=== PATIENT | female | born 1985 | race Caucasian/White ===

== ENCOUNTER 2023-02-11 15:54 | Emergency (ER) | payer BC, OTHER ==
[2023-02-11 16:24] VITALS: RESP 19; TEMP 98.1
--- NOTE | 2023-02-11 16:32 | ERPHSYRPT ---
- History of Present Illness Time Seen by Provider: 02/11/23 16:12 Source: patient Exam Limitations: no limitations Patient Subjective Stated Complaint: C/O fever, body aches, chills, fatigue, headache. States symptoms started last night and she has been around her co-work er who tested positive for COVID. Triage Nursing Assessment: Patient ambulated back to ER without difficulties wearing a mask. She is alert and oriented. No SOB or cough while this nurse in the room assessing. SKin tone normal. NILESH FIGUEROA. Physician History: 38-year-old fairly healthy female presented to the ER with chief complaint of fever chills, body aches, headache and not feeling well since yesterday with progressive worsening today. She has been taking [id number] antipyretic with symptomatic relief. Denies any cough sore throat or difficulty breathing. Reports some nausea but no vomiting. Positive sick contact with another coworker with COVID-19. Patient wants to get checked for COVID-19. Timing/Duration: yesterday, gradual onset, worse Possible Cause: illness exposure Modifying Factors: Improves With: nothing Associated Symptoms: fever, chills, headache, muscle aches Allergies/Adverse Reactions: No Known Drug Allergies Allergy (Verified 02/11/23 16:12) Home Medications: No Reportable Medications [No Reported Medications] 02/11/23 [History] Hx Tetanus, Diphtheria Vaccination/Date Given: Yes Immunizations Up to Date: Yes Travel Risk - International Travel Have you traveled outside of the country in past 3 weeks: No - Coronavirus Screening Are you exhibiting any of the following symptoms?: Yes Symptoms: Loss of Taste or Smell, Headaches/Body Aches/Fatigue Close contact with a COVID-19 positive Pt in past 14-21 Days: Yes - Vaccine Status Have you recieved a Covid-19 vaccination: Yes 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: [employer] - Review of Systems Constitutional: Fever, Chills, Fatigue Eyes: No Symptoms Ears, Nose, & Throat: No Symptoms Respiratory: No Symptoms Cardiac: No Symptoms Abdominal/Gastrointestinal: Nausea Musculoskeletal: Myalgias Skin: No Symptoms Neurological: Headache Endocrine: No Symptoms Hematologic/Lymphatic: No Symptoms - Past Medical History Pertinent Past Medical History: No - Past Surgical History Past Surgical History: Yes Female Surgical History: Tubal Ligation, Other Other Surgical History: cervix cone - Social History Smoking Status: Never smoker Exposure to second hand smoke: No Drug Use: none - Female History Hx Last Menstrual Period: Just finished Hx Now: No - Nursing Vital Signs Nursing Vital Signs: Initial Vital Signs Temperature 98.1 F 02/11/23 15:55 Pulse Rate 92 H 02/11/23 15:55 Respiratory Rate 19 02/11/23 15:55 Blood Pressure 127/94 02/11/23 15:55 O2 Sat by Pulse Oximetry 99 02/11/23 15:55 Pain Scale Pain Intensity 0 - Physical Exam General Appearance: no apparent distress, alert Eye Exam: PERRL/EOMI Ears, Nose, Throat Exam: normal ENT inspection, TMs normal, pharynx normal, moist mucous membranes Neck Exam: normal inspection, non-tender, supple, full range of motion, No meningismus Respiratory Exam: normal breath sounds, lungs clear Cardiovascular Exam: regular rate/rhythm, normal heart sounds Gastrointestinal/Abdomen Exam: soft, normal bowel sounds, No tenderness Extremity Exam: normal inspection Neurologic Exam: alert, oriented x 3, cooperative, 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 She has been taking [id number]-ryv-[id number] antipyretic with symptomatic relief. Denies any cough sore throat or difficulty breathing. Reports some nausea but no vomiting. Positive sick contact with another coworker with COVID-19. Patient wants to get checked for COVID-19. 02/11/23 17:05 She has bilateral clear lungs. Not in any distress. Afebrile currently. Stable vitals. COVID-19 is positive. Not a whole lot of comorbid's. Discussed with patient about Paxlovid, went over benefits and side effects/interactions, declined. Recommended supportive care and outpatient follow-up. Discussed signs symptoms of worsening needing return to ER which she seems understanding. Blood Culture(s) Obtained: No Antibiotics given: No Counseled pt/family regarding: lab results, diagnosis, need for follow-up Medical Desision Making - Diagnostic Testing Diagnostic test were ordered, analyzed, and reviewed by me: Yes - Departure Departure Disposition: Home Clinical Impression: COVID-19 virus detected, Viral syndrome Condition: Stable Critical Care Time: No Referrals: DOCTOR,NO FAMILY [Primary Care Provider] - Follow up with PCP 2 days Instructions: COVID-19 (DC) Additional Instructions: Take Tylenol/ibuprofen as needed. Drink plenty of fluids to keep yourself well- hydrated. Follow-up with primary care for reevaluation. Return to ER for worsening of symptoms. Use contact/droplet precautions.
[2023-02-11 17:01] LABS: INFLUENZA A NEGATIVE (NEGATIVE); INFLUENZA B NEGATIVE (NEGATIVE); RESPIRATORY SYNCTIAL VIRUS NEGATIVE (NEGATIVE)
[2023-02-11 17:03] LABS: SARS-CoV-2 Xpert Express POSITIVE (NEGATIVE)
[2023-02-11 17:04] VITALS: BP 118/62; PULSE 87
[2023-02-11 17:08] VITALS: O2SAT 99
== END 2023-02-11 17:15 | disposition home or self-care (01) ==
LOC: ED 15:54
DX: U07.1 COVID-19 (principal); R50.9 Fever, unspecified; M79.10 Myalgia, unspecified site; R51.9 Headache, unspecified; Z20.822 Contact with and (suspected) exposure to COVID-19
CPT/HCPCS: 0241U; 99282

== ENCOUNTER 2023-04-27 06:20 | Day surgery (SDC) | payer BC, OTHER ==
[2023-04-27] MEDS ORDERED: Lactated Ringers 1,000 ML IV SCH (06:30)
[2023-04-27] MEDS ORDERED: CEFAZOLIN 2 GM-D5W BAG** 2 GM/50 ML ML IV SCH (06:30)
[2023-04-27] MEDS ORDERED: KEFZOL 1 GM** 3 G in Sodium Chloride 0.9% 50 ML 50 ML IV SCH (06:30)
[2023-04-27 06:34] LABS: HCG URINE TEST NEGATIVE (NEGATIVE)
[2023-04-27 06:48] VITALS: RESP 16
[2023-04-27] MEDS ORDERED: Lactated Ringers 1,000 ML IV ONE (06:55)
[2023-04-27] MEDS ORDERED: SUBLIMAZE 100 MCG/2 ML ONE (08:26)
[2023-04-27] MEDS ORDERED: DIPRIVAN 200 MG/20 ML IV ONE (08:26)
[2023-04-27] MEDS ORDERED: Decadron 4 MG INJ ONE (08:27)
[2023-04-27] MEDS ORDERED: Xylocaine-Mpf 2% 5 Ml Vial ONE (08:27)
[2023-04-27] MEDS ORDERED: Zofran 4 MG/2 ML VIAL ONE (08:27)
[2023-04-27] MEDS ORDERED: Pre-Attached Lta Kit TP ONE (08:32)
[2023-04-27] MEDS ORDERED: Quelicin Fliptop 200 MG/10 ML ONE (08:34)
[2023-04-27] MEDS ORDERED: Versed 2 MG/2 ML Injection ONE (08:35)
[2023-04-27] MEDS ORDERED: DEXMEDETOMIDINE 80 MCG/20ML-NS IV ONE (08:49)
[2023-04-27] MEDS ORDERED: ALBUTEROL/Proair Hfa MDI IH ONE (08:56)
[2023-04-27] MEDS ORDERED: TORAdol 30 mg Injection ONE (08:59)
[2023-04-27 09:52] VITALS: TEMP 97.2; O2SAT 97
[2023-04-27 10:09] VITALS: BP 106/85; PULSE 50
--- NOTE | 2023-04-28 08:38 | OP ---
SURGERY DATE/TIME: 04/27/2023 0833 PREOPERATIVE DIAGNOSIS: Menorrhagia. POSTOPERATIVE DIAGNOSIS: Menorrhagia with fibroid uterus. PROCEDURE: Hysteroscopy D&C with NovaSure ablation. SURGEON: Al Fernandez D.O. CHECK AND TRANSFER BEADER: Jayne Francis, hand frame surgical elastic knitter. ANESTHESIA: General. ESTIMATED BLOOD LOSS: Minimal. COMPLICATIONS: None. INDICATIONS: The risks, benefits, indications and alternatives of the procedure were reviewed with the patient prior to procedure. The patient understood the risk of infection, bleeding, bowel injury, bladder injury, ureteral injury, uterine perforation, pelvic infection and thromboembolic disorder associated with this surgery and desires to have this surgery as a possible means to alleviate her current medical condition. DESCRIPTION OF PROCEDURE AND FINDINGS: At this point the patient is taken to the operating room, given general sedation, placed in dorsal lithotomy position, prepped and draped in the usual sterile fashion. A weighted speculum is then placed into the patient's vagina and the anterior lip of the cervix is grasped with a single tooth tenaculum. Endocervical dilators were advanced through the endocervical canal as a means to dilate the cervix and a 5 mm hysteroscope was then placed into the fundus of the uterus where visualization revealed no gross abnormalities. At this point the hysteroscope was removed and a curette was then placed into the fundus of the uterus and curettage was performed in all quadrants of the uterus retrieving a mild to moderate amount of tissue. At this point, minimal bleeding was noted and the NovaSure was then taken to the endocervical region towards the fundal region retracted approximately 1 cm with a length of 6.5 cm and a width of 4.6 cm and the machine was engaged. Ablative time was performed at approximately 1 minute and 12 seconds of ablative time. After complete ablation the instrument was disengaged and removed from the uterine cavity without complication. From this point all instruments were then removed from the patient's vaginal region. The patient was then taken out of the dorsal lithotomy position, was taken out of anesthesia and was then taken to the recovery room in stable condition. All instruments and laps were accounted for x2.
== END 2023-04-27 10:07 | disposition home or self-care (01) ==
LOC: SDC 06:20
PROVIDERS: ATTEND Obstetrics & Gynecology
DX: N92.0 Excessive and frequent menstruation with regular cycle (principal); D25.9 Leiomyoma of uterus, unspecified
CPT/HCPCS: 81025; 93005; J0330; J0690; J1100; J1885; J2250; J2405; J2704; J3010; A9270-GY

== ENCOUNTER 2024-05-02 07:32 | Observation (INO) | payer BC ==
[~2024-05-02 07:32] MED LIST: CEFAZOLIN 2 GM/100 ML NaCl 2 GM/100 ML IVPB IV SCH
[2024-05-02 07:44] LABS: HCG URINE TEST NEGATIVE (NEGATIVE)
[2024-05-02 07:57] LABS: Hematocrit 42.4 % (34.1-44.9); Hemoglobin 14.2 g/dL (11.2-15.7); Mean Corpuscular Hemoglobin 29.5 pg (25.6-32.2); Mean Corpuscular Hgb Concent. 33.5 g/dL (32.2-35.5); Mean Platelet Volume 10.9 fL (9.4-12.3); Platelet Count 266 x10^3/uL (182-369); Red Blood Count 4.82 x10^6/uL (3.93-5.22); White Blood Count 8.2 x10^3/uL (3.98-10.04)
[2024-05-02] MEDS ORDERED: Pepcid 20 MG VIAL IV ONE (07:59)
[2024-05-02] MEDS ORDERED: celeBREX 100 MG ONE (08:00)
[2024-05-02] MEDS ORDERED: TYLENOL EXTRA STRENGTH 500 MG ONE (08:00)
[2024-05-02] MEDS ORDERED: NEURONTIN ONE (08:00)
[2024-05-02] MEDS ORDERED: Decadron 4 MG ONE ×2 (08:00→08:07)
[2024-05-02] MEDS ORDERED: Lactated Ringers 1,000 ML IV ONE ×2 (08:00→11:53)
[2024-05-02] MEDS: TYLENOL EXTRA STRENGTH 500 MG PO ONE (08:05)
[2024-05-02] MEDS: celeBREX 100 MG PO ONE (08:05)
[2024-05-02] MEDS: Decadron 4 MG PO ONE (08:05)
[2024-05-02] MEDS: NEURONTIN PO ONE (08:05)
[2024-05-02] MEDS: Lactated Ringers 1,000 ML IV SCH (08:05)
[2024-05-02] MEDS: Pepcid 20 MG VIAL IV ONE (08:06)
[2024-05-02 08:10] LABS: ALBUMIN 4.5 g/dL (3.5-5.0); ANION GAP 10.7 MEQ/L (5-15); BILIRUBIN,TOTAL 0.7 mg/dL (0.2-1.3); Calcium 9.2 mg/dL (8.4-10.2); Creatinine 1 0.65 mg/dL (0.52-1.04); EST GLOMERULAR FILTRATION RATE 115.5 ML/MIN; Total Protein 7.9 g/dL (6.3-8.2)
[2024-05-02] MEDS: FLAGYL 500 MG IVPB 500 MG/100 ML BAG IV ONE (08:26)
[2024-05-02] MEDS: KEFZOL 1 GM** 3 G in Sodium Chloride 0.9% 50 ML 50 ML IV SCH (08:27)
[2024-05-02 08:30] LABS: ABO TYPING O; Antibody Screen NEGATIVE (NEGATIVE); RH TYPING NEGATIVE
[2024-05-02] MEDS ORDERED: SUBLIMAZE 100 MCG/2 ML ONE (11:25)
[2024-05-02] MEDS ORDERED: Versed 2 MG/2 ML Injection ONE (11:25)
[2024-05-02] MEDS ORDERED: Astramorph-Pf 5 MG/10 ML ONE (11:26)
[2024-05-02] MEDS ORDERED: DIPRIVAN 200 MG/20 ML IV ONE (11:26)
[2024-05-02] MEDS ORDERED: ROCURONIUM BROMIDE IV ONE (11:27)
[2024-05-02] MEDS ORDERED: Zofran 4 MG/2 ML VIAL ONE (11:27)
[2024-05-02] MEDS ORDERED: Xylocaine-Mpf 2% 5 Ml Vial ONE (11:28)
[2024-05-02] MEDS ORDERED: Marcaine Mpf 0.5% Vial 30 Ml ONE (11:52)
[2024-05-02] MEDS ORDERED: EXPAREL 133 MG/10 ML VIAL IJ ONE (11:53)
[2024-05-02] MEDS ORDERED: Pre-Attached Lta Kit TP ONE (12:06)
[2024-05-02] MEDS ORDERED: PHENYLEPHRINE HCL ONE (14:10)
[2024-05-02] MEDS ORDERED: Ephedrine Sulfate 50 MG/ML ONE (14:10)
[2024-05-02] MEDS ORDERED: DEXMEDETOMIDINE 80 MCG/20ML-NS IV ONE (14:11)
[2024-05-02] MEDS ORDERED: BRIDION 200MG/2ML IV ONE (14:15)
[2024-05-02 14:18] LABS: Appearance Clear (Clear); Bacteria None Seen /HPF (None Seen); Bilirubin Negative (Negative); Blood Negative (Negative); Epithelial Cells None Seen /HPF (None Seen); Glucose, Urine Negative (Negative); Hyaline Casts NONE SEEN /LPF (0-2); Ketones Negative (Negative); Leukocyte Esterase Negative (Negative); Nitrite Negative (Negative); Ph 7.5 (4.6-8.0); Protein,Urine Dip Negative (Negative); RBC 0-2 /HPF (0-5); WBC 0-2 /HPF (0-5)
[2024-05-02] MEDS ORDERED: MORPHINE SULFATE 2 MG INJ IV PRN (17:08)
[2024-05-02] MEDS ORDERED: Zofran 4 MG/2 ML VIAL IV PRN (17:08)
[2024-05-02] MEDS ORDERED: CLARITIN 10 MG PO PRN (17:08)
[2024-05-02] MEDS ORDERED: PERCOCET TABLET 5/325MG PO PRN (17:08)
[2024-05-02] MEDS ORDERED: DEMEROL 50 MG IV PRN (17:08)
[2024-05-02] MEDS ORDERED: BENADRYL 50 MG/ML IV PRN (17:08)
[2024-05-02] MEDS ORDERED: Narcan 0.4 MG/ML IV PRN (17:08)
[2024-05-02] MEDS ORDERED: Nubain 10 MG/ML IV PRN (17:08)
[2024-05-02] MEDS ORDERED: TORAdol 30 mg Injection IV PRN (17:17)
[2024-05-02] MEDS ORDERED: Lactated Ringers 1,000 ML IV SCH (17:30)
[2024-05-02 18:06] LABS: Hematocrit 40.5 % (34.1-44.9); Hemoglobin 13.4 g/dL (11.2-15.7); Mean Cell Volume 89.8 fL (79.4-94.8); Mean Corpuscular Hemoglobin 29.7 pg (25.6-32.2); Mean Corpuscular Hgb Concent. 33.1 g/dL (32.2-35.5); Platelet Count 246 x10^3/uL (182-369); Red Blood Count 4.51 x10^6/uL (3.93-5.22); Red Cell Distribution Width 11.9 % (11.7-14.4); White Blood Count 18.3 x10^3/uL (3.98-10.04)
[2024-05-02] MEDS ORDERED: MEDICATION INTERVENTION MC SCH ×2 (18:15)
[2024-05-02] MEDS: THERAGRAN MULTIVITAMIN PO SCH (18:51)
[2024-05-02] MEDS: Acidophilus TABLET PO SCH (18:51)
[2024-05-02] MEDS: CEFAZOLIN 2 GM/100 ML NaCl 2 GM/100 ML IVPB IV SCH (18:51)
[2024-05-02] MEDS: HOLD NARCOTIC ANALGESICS AND SEDATIVES X24 HR MC SCH (18:52)
[2024-05-02] MEDS: Reglan 10 MG/2 ML IV SCH (22:01)
[2024-05-02] MEDS: Docusate Sodium 100 MG PO SCH (22:01)
[2024-05-02] MEDS: Mylicon 80MG PO SCH (22:01)
[2024-05-03 04:50] VITALS: RESP 16; TEMP 97.1
[2024-05-03 05:00] LABS: Hematocrit 36.4 % (34.1-44.9); Hemoglobin 12.1 g/dL (11.2-15.7); Mean Cell Volume 88.3 fL (79.4-94.8); Mean Corpuscular Hemoglobin 29.4 pg (25.6-32.2); Mean Corpuscular Hgb Concent. 33.2 g/dL (32.2-35.5); Mean Platelet Volume 11.1 fL (9.4-12.3); Platelet Count 241 x10^3/uL (182-369); Red Blood Count 4.12 x10^6/uL (3.93-5.22); Red Cell Distribution Width 12.2 % (11.7-14.4); White Blood Count 13.6 x10^3/uL (3.98-10.04)
[2024-05-03 05:18] LABS: ALBUMIN 3.4 g/dL (3.5-5.0); ANION GAP 8.3 MEQ/L (5-15); BILIRUBIN,TOTAL 0.4 mg/dL (0.2-1.3); Calcium 8.6 mg/dL (8.4-10.2); Creatinine 1 0.61 mg/dL (0.52-1.04); EST GLOMERULAR FILTRATION RATE 117.3 ML/MIN; Potassium 3.8 mmol/L (3.5-5.1); Total Protein 6.2 g/dL (6.3-8.2)
[2024-05-03 07:41] VITALS: BP 122/55; PULSE 58; O2SAT 95
--- NOTE | 2024-05-03 07:50 | PCM.NOTE ---
Date and Time: 05/03/24 0747 Subjective Assessment: pod 1 sp rubén pt resting in bed and doing well able to ambulate and tolerate diet. vss afebrile abd; soft incision intact with dressing intact with no soilage. ext; no clubbing cyanosis or edema a/p sp rubén labs stable dc home today should fu in office next wednesday Objective Exam Wound Assessment: Skin/Wound Assessment Wound/Incision Assessment Start: 05/02/24 21:09 Text: Status: Active Freq: Q6H Protocol: Document 05/03/24 02:00 KD (Rec: 05/03/24 02:07 KD [id number]) Wound/Incision Assessment Lower Anterior Abdomen Wound Assessment Shift Assessment Wound Type Incision Wound Stage Non Pressure Wound Dressing Status Dry & Intact Drainage Amount None General Appearance Clean/Dry Surrounding Tissue [place] Primary Dressing aquacell dressing Comment 1 incision covered with aquacell dressing, CDI, post- op open total hysterectomy - remains true Wound Photo Photo Taken No Objective Data Vital Signs: Vital Signs - 24 hr Temp Pulse Resp BP Pulse Ox 05/03/24 07:40 97.1 F 58 L 16 122/55 95 05/03/24 06:11 96 05/03/24 04:00 97.1 F 57 L 16 100/58 97 05/02/24 23:25 98.5 F 86 19 103/57 97 05/02/24 20:00 97.0 F 76 17 119/60 96 05/02/24 19:38 98 05/02/24 17:15 81 17 115/61 94 L 05/02/24 16:15 76 16 123/82 93 L 05/02/24 15:45 69 16 125/77 96 05/02/24 15:15 97.7 F 74 16 128/74 96 05/02/24 15:00 70 16 120/77 95 05/02/24 08:13 97.9 F 88 16 122/85 96 05/02/24 08:07 97.9 F 88 16 122/85 96 05/02/24 07:53 97.9 F 88 16 122/85 96 Intake and Output: Intake & Output 04/30/24 05/01/24 05/02/24 05/03/24 11:59 11:59 11:59 11:59 Intake Total 1229 Output Total 825 Balance 404 Weight 111.9 kg 111 kg Lab Results: Lab Results-Last 24 Hours 05/02/24 05/02/24 05/02/24 Range/Units 07:51 07:51 07:51 WBC 8.2 (3.98-10.04) x10^3/uL RBC 4.82 (3.93-5.22) x10^6/uL Hgb 14.2 (11.2-15.7) g/dL Hct 42.4 (34.1-44.9) % MCV 88.0 (79.4-94.8) fL MCH 29.5 (25.6-32.2) pg MCHC 33.5 (32.2-35.5) g/dL RDW 12.0 (11.7-14.4) % Plt Count 266 (182-369) x10^3/uL MPV 10.9 (9.4-12.3) fL Sodium 136 (135-145) mmol/L Potassium 4.0 (3.5-5.1) mmol/L Chloride 104 (98-107) mmol/L Carbon Dioxide 25 (22-30) mmol/L Anion Gap 10.7 (5-15) MEQ/L BUN 11 (7-17) mg/dL Creatinine 0.65 (0.52-1.04) mg/dL Estimated GFR 115.5 ML/MIN Glucose 114 H (74-106) mg/dL Calcium 9.2 (8.4-10.2) mg/dL Total Bilirubin 0.70 (0.2-1.3) mg/dL AST 24 (14-36) U/L ALT 20 (0-35) U/L Alkaline Phosphatase 55 (38-126) U/L Serum Total Protein 7.9 (6.3-8.2) g/dL Albumin 4.5 (3.5-5.0) g/dL Urine Color (Yellow) Urine Appearance (Clear) Urine pH (4.6-8.0) Ur Specific [place] (1.005-1.030) Urine Protein (Negative) Urine Glucose (UA) (Negative) mg/dL Urine Ketones (Negative) Urine Blood (Negative) Urine Nitrite (Negative) Urine Bilirubin (Negative) Urine Urobilinogen (0.2) mg/dL Ur Leukocyte Esterase (Negative) U Hyaline Cast (Auto) (0-2) /LPF Urine Microscopic RBC (0-5) /HPF Urine Microscopic WBC (0-5) /HPF Ur Epithelial Cells (None Seen) /HPF Urine Bacteria (None Seen) /HPF ABO Group O Rh Factor NEGATIVE Antibody Screen NEGATIVE (NEGATIVE) 05/02/24 05/02/24 05/03/24 Range/Units 13:10 18:00 04:45 WBC 18.3 H 13.6 H (3.98-10.04) x10^3/uL RBC 4.51 4.12 (3.93-5.22) x10^6/uL Hgb 13.4 12.1 (11.2-15.7) g/dL Hct 40.5 36.4 (34.1-44.9) % MCV 89.8 88.3 (79.4-94.8) fL MCH 29.7 29.4 (25.6-32.2) pg MCHC 33.1 33.2 (32.2-35.5) g/dL RDW 11.9 12.2 (11.7-14.4) % Plt Count 246 241 (182-369) x10^3/uL MPV 11.0 11.1 (9.4-12.3) fL Sodium (135-145) mmol/L Potassium (3.5-5.1) mmol/L Chloride (98-107) mmol/L Carbon Dioxide (22-30) mmol/L Anion Gap (5-15) MEQ/L BUN (7-17) mg/dL Creatinine (0.52-1.04) mg/dL Estimated GFR ML/MIN Glucose (74-106) mg/dL Calcium (8.4-10.2) mg/dL Total Bilirubin (0.2-1.3) mg/dL AST (14-36) U/L ALT (0-35) U/L Alkaline Phosphatase (38-126) U/L Serum Total Protein (6.3-8.2) g/dL Albumin (3.5-5.0) g/dL Urine Color Yellow (Yellow) Urine Appearance Clear (Clear) Urine pH 7.5 (4.6-8.0) Ur Specific [place] 1.010 (1.005-1.030) Urine Protein Negative (Negative) Urine Glucose (UA) Negative (Negative) mg/dL Urine Ketones Negative (Negative) Urine Blood Negative (Negative) Urine Nitrite Negative (Negative) Urine Bilirubin Negative (Negative) Urine Urobilinogen 1.0 A (0.2) mg/dL Ur Leukocyte Esterase Negative (Negative) U Hyaline Cast (Auto) NONE SEEN (0-2) /LPF Urine Microscopic RBC 0-2 (0-5) /HPF Urine Microscopic WBC 0-2 (0-5) /HPF Ur Epithelial Cells None Seen (None Seen) /HPF Urine Bacteria None Seen (None Seen) /HPF ABO Group Rh Factor Antibody Screen (NEGATIVE) 05/03/24 Range/Units 04:45 WBC (3.98-10.04) x10^3/uL RBC (3.93-5.22) x10^6/uL Hgb (11.2-15.7) g/dL Hct (34.1-44.9) % MCV (79.4-94.8) fL MCH (25.6-32.2) pg MCHC (32.2-35.5) g/dL RDW (11.7-14.4) % Plt Count (182-369) x10^3/uL MPV (9.4-12.3) fL Sodium 134 L (135-145) mmol/L Potassium 3.8 (3.5-5.1) mmol/L Chloride 103 (98-107) mmol/L Carbon Dioxide 27 (22-30) mmol/L Anion Gap 8.3 (5-15) MEQ/L BUN 12 (7-17) mg/dL Creatinine 0.61 (0.52-1.04) mg/dL Estimated GFR 117.3 ML/MIN Glucose 122 H (74-106) mg/dL Calcium 8.6 (8.4-10.2) mg/dL Total Bilirubin 0.40 (0.2-1.3) mg/dL AST 19 (14-36) U/L ALT 17 (0-35) U/L Alkaline Phosphatase 49 (38-126) U/L Serum Total Protein 6.2 L (6.3-8.2) g/dL Albumin 3.4 L (3.5-5.0) g/dL Urine Color (Yellow) Urine Appearance (Clear) Urine pH (4.6-8.0) Ur Specific [place] (1.005-1.030) Urine Protein (Negative) Urine Glucose (UA) (Negative) mg/dL Urine Ketones (Negative) Urine Blood (Negative) Urine Nitrite (Negative) Urine Bilirubin (Negative) Urine Urobilinogen (0.2) mg/dL Ur Leukocyte Esterase (Negative) U Hyaline Cast (Auto) (0-2) /LPF Urine Microscopic RBC (0-5) /HPF Urine Microscopic WBC (0-5) /HPF Ur Epithelial Cells (None Seen) /HPF Urine Bacteria (None Seen) /HPF ABO Group Rh Factor Antibody Screen (NEGATIVE) Assessment/Plan (1) Fibroid uterus Current Visit: Yes Status: Acute Code(s): D25.9 - LEIOMYOMA OF UTERUS, UNSPECIFIED (2) Status post abdominal hysterectomy Current Visit: Yes Status: Acute Code(s): Z90.710 - ACQUIRED ABSENCE OF BOTH CERVIX AND UTERUS
--- NOTE | 2024-05-03 07:52 | PCM.DS ---
Discharge Summary Date of Admission: 05/02/24 07:32 Admitting Physician: EL FLANAGAN DO Primary Care Provider: MAULIK YEN DO Allergies Allergies No Known Drug Allergies Allergy (Verified 05/02/24 07:43) Hospital Summary - Hospital Course Hospital Course: pt admitted yesterday for undergoing total abdominal hysterectomy secondary to symptomatic fibroid uterus and underwent procedure without complication. during postop day 1 did very well able to ambulate and tolerate diet where labs reviewed and all relevant values normal. denies complaints. will send rx for percocet to [facility]. pt instructed to keep dressing intact till seen in office next wednesday. all questions answered to her satisfaction and at this time stable for discharge with fu in 1 wk. - Vitals & Intake/Output Vital Signs: Vital Signs Temperature 97.1 F 05/03/24 07:40 Pulse Rate 58 L 05/03/24 07:40 Respiratory Rate 16 05/03/24 07:40 Blood Pressure 122/55 05/03/24 07:40 O2 Sat by Pulse Oximetry 95 05/03/24 07:40 Intake & Output: Intake & Output 04/30/24 05/01/24 05/02/24 05/03/24 11:59 11:59 11:59 11:59 Intake Total 1229 Output Total 825 Balance 404 Weight 111.9 kg 111 kg - Lab Result Diagrams: 05/03/24 04:45 05/03/24 04:45 Lab Results-Last 24 Hrs: Lab Results-Last 24 Hours 05/02/24 05/02/24 05/02/24 Range/Units 07:51 07:51 07:51 WBC 8.2 (3.98-10.04) x10^3/uL RBC 4.82 (3.93-5.22) x10^6/uL Hgb 14.2 (11.2-15.7) g/dL Hct 42.4 (34.1-44.9) % MCV 88.0 (79.4-94.8) fL MCH 29.5 (25.6-32.2) pg MCHC 33.5 (32.2-35.5) g/dL RDW 12.0 (11.7-14.4) % Plt Count 266 (182-369) x10^3/uL MPV 10.9 (9.4-12.3) fL Sodium 136 (135-145) mmol/L Potassium 4.0 (3.5-5.1) mmol/L Chloride 104 (98-107) mmol/L Carbon Dioxide 25 (22-30) mmol/L Anion Gap 10.7 (5-15) MEQ/L BUN 11 (7-17) mg/dL Creatinine 0.65 (0.52-1.04) mg/dL Estimated GFR 115.5 ML/MIN Glucose 114 H (74-106) mg/dL Calcium 9.2 (8.4-10.2) mg/dL Total Bilirubin 0.70 (0.2-1.3) mg/dL AST 24 (14-36) U/L ALT 20 (0-35) U/L Alkaline Phosphatase 55 (38-126) U/L Serum Total Protein 7.9 (6.3-8.2) g/dL Albumin 4.5 (3.5-5.0) g/dL Urine Color (Yellow) Urine Appearance (Clear) Urine pH (4.6-8.0) Ur Specific [place] (1.005-1.030) Urine Protein (Negative) Urine Glucose (UA) (Negative) mg/dL Urine Ketones (Negative) Urine Blood (Negative) Urine Nitrite (Negative) Urine Bilirubin (Negative) Urine Urobilinogen (0.2) mg/dL Ur Leukocyte Esterase (Negative) U Hyaline Cast (Auto) (0-2) /LPF Urine Microscopic RBC (0-5) /HPF Urine Microscopic WBC (0-5) /HPF Ur Epithelial Cells (None Seen) /HPF Urine Bacteria (None Seen) /HPF ABO Group O Rh Factor NEGATIVE Antibody Screen NEGATIVE (NEGATIVE) 05/02/24 05/02/24 05/03/24 Range/Units 13:10 18:00 04:45 WBC 18.3 H 13.6 H (3.98-10.04) x10^3/uL RBC 4.51 4.12 (3.93-5.22) x10^6/uL Hgb 13.4 12.1 (11.2-15.7) g/dL Hct 40.5 36.4 (34.1-44.9) % MCV 89.8 88.3 (79.4-94.8) fL MCH 29.7 29.4 (25.6-32.2) pg MCHC 33.1 33.2 (32.2-35.5) g/dL RDW 11.9 12.2 (11.7-14.4) % Plt Count 246 241 (182-369) x10^3/uL MPV 11.0 11.1 (9.4-12.3) fL Sodium (135-145) mmol/L Potassium (3.5-5.1) mmol/L Chloride (98-107) mmol/L Carbon Dioxide (22-30) mmol/L Anion Gap (5-15) MEQ/L BUN (7-17) mg/dL Creatinine (0.52-1.04) mg/dL Estimated GFR ML/MIN Glucose (74-106) mg/dL Calcium (8.4-10.2) mg/dL Total Bilirubin (0.2-1.3) mg/dL AST (14-36) U/L ALT (0-35) U/L Alkaline Phosphatase (38-126) U/L Serum Total Protein (6.3-8.2) g/dL Albumin (3.5-5.0) g/dL Urine Color Yellow (Yellow) Urine Appearance Clear (Clear) Urine pH 7.5 (4.6-8.0) Ur Specific [place] 1.010 (1.005-1.030) Urine Protein Negative (Negative) Urine Glucose (UA) Negative (Negative) mg/dL Urine Ketones Negative (Negative) Urine Blood Negative (Negative) Urine Nitrite Negative (Negative) Urine Bilirubin Negative (Negative) Urine Urobilinogen 1.0 A (0.2) mg/dL Ur Leukocyte Esterase Negative (Negative) U Hyaline Cast (Auto) NONE SEEN (0-2) /LPF Urine Microscopic RBC 0-2 (0-5) /HPF Urine Microscopic WBC 0-2 (0-5) /HPF Ur Epithelial Cells None Seen (None Seen) /HPF Urine Bacteria None Seen (None Seen) /HPF ABO Group Rh Factor Antibody Screen (NEGATIVE) 05/03/24 Range/Units 04:45 WBC (3.98-10.04) x10^3/uL RBC (3.93-5.22) x10^6/uL Hgb (11.2-15.7) g/dL Hct (34.1-44.9) % MCV (79.4-94.8) fL MCH (25.6-32.2) pg MCHC (32.2-35.5) g/dL RDW (11.7-14.4) % Plt Count (182-369) x10^3/uL MPV (9.4-12.3) fL Sodium 134 L (135-145) mmol/L Potassium 3.8 (3.5-5.1) mmol/L Chloride 103 (98-107) mmol/L Carbon Dioxide 27 (22-30) mmol/L Anion Gap 8.3 (5-15) MEQ/L BUN 12 (7-17) mg/dL Creatinine 0.61 (0.52-1.04) mg/dL Estimated GFR 117.3 ML/MIN Glucose 122 H (74-106) mg/dL Calcium 8.6 (8.4-10.2) mg/dL Total Bilirubin 0.40 (0.2-1.3) mg/dL AST 19 (14-36) U/L ALT 17 (0-35) U/L Alkaline Phosphatase 49 (38-126) U/L Serum Total Protein 6.2 L (6.3-8.2) g/dL Albumin 3.4 L (3.5-5.0) g/dL Urine Color (Yellow) Urine Appearance (Clear) Urine pH (4.6-8.0) Ur Specific [place] (1.005-1.030) Urine Protein (Negative) Urine Glucose (UA) (Negative) mg/dL Urine Ketones (Negative) Urine Blood (Negative) Urine Nitrite (Negative) Urine Bilirubin (Negative) Urine Urobilinogen (0.2) mg/dL Ur Leukocyte Esterase (Negative) U Hyaline Cast (Auto) (0-2) /LPF Urine Microscopic RBC (0-5) /HPF Urine Microscopic WBC (0-5) /HPF Ur Epithelial Cells (None Seen) /HPF Urine Bacteria (None Seen) /HPF ABO Group Rh Factor Antibody Screen (NEGATIVE) Micro Results-Entire Visit: Microbiology 05/02/24 13:10 Urine Culture - Preliminary Urine, Catheterized NO GROWTH TO DATE - Procedures and Test Procedures and Tests throughout Hospitalization: Therapy Orders & Screens 05/02/24 15:15 Incentive Spirometry UD Comment: every 2 hours wa Diagnosis: S/P HYSTERECTOMY Oxygen Oxymask LPM 3 lpm Comment: 3L nc to keep sats above 93% Diagnosis: S/P HYSTERECTOMY 05/02/24 16:15 Smoking Cessation Education ONCE Comment: Diagnosis: S/P HYSTERECTOMY Smoking Status: Current every day smoker How long have you smoked: 15 yers Approximately how many cigarettes per day: 1-2 CIGS, USES VAPE Do you dip or chew tobacco: No Discharge Exam Wound Assessment: Skin/Wound Assessment Wound/Incision Assessment Start: 05/02/24 21:09 Text: Status: Active Freq: Q6H Protocol: Document 05/03/24 02:00 KD (Rec: 05/03/24 02:07 KD [id number]) Wound/Incision Assessment Lower Anterior Abdomen Wound Assessment Shift Assessment Wound Type Incision Wound Stage Non Pressure Wound Dressing Status Dry & Intact Drainage Amount None General Appearance Clean/Dry Surrounding Tissue [place] Primary Dressing aquacell dressing Comment 1 incision covered with aquacell dressing, CDI, post- op open total hysterectomy - remains true Wound Photo Photo Taken No Final Diagnosis/Problem List - Final Discharge Diagnosis/Problem (1) Fibroid uterus Current Visit: Yes Status: Acute Code(s): D25.9 - LEIOMYOMA OF UTERUS, UNSPECIFIED (2) Status post abdominal hysterectomy Current Visit: Yes Status: Acute Code(s): Z90.710 - ACQUIRED ABSENCE OF BOTH CERVIX AND UTERUS - Discharge Disposition: Home, Self-Care Condition: Stable Prescriptions: No Action Mv-Min/Iron/Folic/Calcium/Vitk [Women's Multivitamin Tablet] 1 each PO DAILY L.acidoph,Paracasei, B.lactis [Probiotic] 1 each PO DAILY Turmeric 1,000 mg PO DAILY Sour Sosa Extract [Tart Sosa Extract] 1,000 mg PO DAILY Follow up with: MAULIK YEN DO [Primary Care Provider] - EL FLANAGAN DO [ACTIVE STAFF] - 05/09/24 (should fu next wednesday for postop check may not drive for at least 1 wk should not lift heavy objects no intercourse for 6 wks should call me anytime for any issues she may have)
[2024-05-03] MEDS: ENOXAPARIN SODIUM SQ SCH (09:34)
[2024-05-03] MEDS ORDERED: TURMERIC 400 MG PO SCH (10:00)
[2024-05-03] MEDS ORDERED: NON-FORMULARY ITEM (L.Acidoph,Paracasei, B.Lactis [Probiotic] 1 EACH Capsule) PO SCH (10:00)
[2024-05-03] MEDS ORDERED: SOUR CHERRY EXTRACT 1000 MG PO SCH (10:00)
[2024-05-03] MEDS ORDERED: [UNRECOGNIZED DRUG - OTHER] PO SCH (10:00)
[2024-05-03] MEDS ORDERED: FOLIC PO SCH (10:00)
[2024-05-03] MEDS ORDERED: IRON PO SCH (10:00)
[2024-05-03] MEDS ORDERED: MV MIN PO SCH (10:00)
[2024-05-03] MEDS ORDERED: CALCIUM PO SCH (10:00)
[2024-05-03] MEDS ORDERED: VITK PO SCH (10:00)
--- NOTE | 2024-05-05 01:37 | OP ---
SURGERY DATE/TIME: 05/02/2024 [id number] PREOPERATIVE DIAGNOSIS: Symptomatic fibroid uterus with morbid obesity. POSTOPERATIVE DIAGNOSIS: Symptomatic fibroid uterus with morbid obesity. PROCEDURE: Total abdominal hysterectomy. SURGEON: Edmond Fernandez DO HANDKERCHIEF FOLDER: Shavonne Masters. ANESTHESIA: General. ESTIMATED BLOOD LOSS: 100 mL. COMPLICATIONS: None. FINDINGS: The risks, benefits, indications, and alternatives of the procedure were reviewed with the patient prior to the procedure. Patient understood the risks of infection, bleeding, bowel injury, bladder injury, ureteral injury, pelvic infection, thromboembolic disorder, wound infection associated with the surgery, and desires to have the surgery as a possible means to alleviate her current medical condition. DESCRIPTION OF PROCEDURE AND FINDINGS: At this point, the patient was taken to the operating room, placed in a supine position and given general anesthesia, prepped and draped in the usual sterile fashion. A Pfannenstiel incision was made approximately 2 cm above the symphysis pubis and extended sharply through the rectus fascia. The fascia was then incised bilaterally with the curved Gonsales scissors and the muscles of the anterior abdominal wall were in the midline by sharp and blunt dissection. The peritoneum was then grasped between 2 pickups, elevated, and entered sharply with the Metzenbaum scissors. The pelvis was then examined and was noted to have an approximately 10-week size uterus with a large 6 x 6 cm what appears anterior fibroid. An O'William-O'Rush retractor was placed into the incision. The bowel packed away with moist lap operative sponges. A tenaculum was then used to elevate the uterus. At this point, the LigaSure was used to clamp, coagulate, and cut the left uteroovarian ligament which was taken down to the round ligament towards the uterine vasculature on the left side where it too was skeletonized and it too was clamped, coagulated, and cut. The same procedure was performed on the right side where the right uteroovarian ligament was clamped, coagulated, and cut, taken down through the round ligament towards the uterine vasculature where it too was skeletonized and clamped, coagulated, and cut and a bladder flap developed. Again, the anterior lip of the broad ligament was incised on the bladder reflections to the midline from both sides. The bladder was gently dissected off the lower uterine segment and the cervix with a sponge stick. The infundibulopelvic ligaments on both sides were then doubly clamped, transected, and suture ligated with 0 Vicryl suture. The uterine arteries, as mentioned, were skeletonized, transected, and cut with a LigaSure. Again, hemostasis was assured. The uterosacral ligaments were clamped on both sides, transected, and suture ligated in a similar fashion. The cervix and the uterus were then amputated with the cautery. The vaginal cuff angles were closed with [id number] stitches as well as Vicryl and were transfixed to the ipsilateral, cardinal, and uterosacral ligaments. The remainder of the vaginal cuff was closed with a series of interrupted 0 Vicryl [id number] sutures. Hemostasis was assured. From this point, the pelvis was then irrigated copiously with warm normal saline. All operative sponges and instruments were removed from the patient's abdomen. The ovaries appeared to be within normal limits. There were no fallopian tubes that were noted within the pelvic region. The fascia was closed with running 0-Vicryl and hemostasis was assured. The subcutaneous layer was closed with 3-0 Vicryl suture. The skin was closed with absorbable [place] called Insorb. Sponge, lap, needle, and instrument counts were correct x2. The patient was then taken to the recovery room in stable condition.
== END 2024-05-03 11:23 | disposition home or self-care (01) ==
LOC: MED SURG 07:32 → EDSTATUS 15:06
PROVIDERS: ADMIT Obstetrics & Gynecology; ATTEND Obstetrics & Gynecology
DX: D25.9 Leiomyoma of uterus, unspecified (principal); E66.01 Morbid (severe) obesity due to excess calories
CPT/HCPCS: 36415; 58150; 80053; 81001; 81025; 85027; 86850; 86900; 86901; 87086; 93268; 94762; G0378; J0690; J1650; J2250; J2274; J2371; J2405; J2704; J3010; A9270-GY